=== PATIENT | female | born 1975 | race Caucasian/White ===

== ENCOUNTER → 2022-10-31 | Outpatient (CLI) | payer BC ==
--- NOTE | 2022-11-04 09:13 | MM ---
Reason for Exam: Screening (asymptomatic). Baseline mammogram. Patient History: Menarche at age 16. First Full-Term at age 28. Last menstrual period: 10/26/2022 Risk Values: Magda 5 year model risk: 0.8%. NCI Lifetime model risk: 9.8%. Prior Study Comparison: Patient's first Mammogram. Tissue Density: The breast tissue is heterogeneously dense. This may lower the sensitivity of mammography. Findings: Analyzed By CAD. Left upper outer quadrant interval lingular lymph node. No suspicious masses or calcifications. Right breast 11 mm asymmetry at 2.6 cm the nipple posterior nipple line. Overall Assessment: Incomplete: need additional imaging evaluation, BI-RAD 0 Management: Diagnostic Mammogram of the right breast. [facility] will attempt to contact patient to return for supplemental views and ultrasound if indicated. Patient should continue monthly self-breast exams. A clinical breast exam by your physician is recommended on an annual basis. This exam should not preclude additional follow-up of suspicious palpable abnormalities. Note on Magda scores and lifetime risk: 1. A Magda score greater than 3% is considered moderate risk. If this is the case, consider specialist referral to assess eligibility for a risk reducing agent. 2. If overall lifetime risk for the development of breast cancer is 20% or higher, the patient may qualify for future screening with alternating mammogram and breast MRI. Electronically signed and approved by: Carlito Rubio DO
== END | disposition home or self-care (01) ==
LOC: RADMAMWWP 15:43
PROVIDERS: ATTEND Family Medicine
DX: Z12.31 Encounter for screening mammogram for malignant neoplasm of breast (principal)
CPT/HCPCS: 77063; 77067

== ENCOUNTER → 2022-11-06 | Outpatient (CLI) | payer BC ==
--- NOTE | 2022-11-06 08:45 | USB ---
Reason for Exam: Additional evaluation requested from abnormal screening. Patient History: Menarche at age 16. First Full-Term at age 28. Patient has history of breast feeding. Risk Values: Magda 5 year model risk: 0.8%. NCI Lifetime model risk: 9.8%. Prior Study Comparison: 10/31/2022 Bilateral MG 3D screening mammo w/cad, [facility]. Findings: There is a solid 1.4 x 1.1 x 0.8 cm solid smooth bordered lesion at the 12:00 position 4 cm nipple. This appears to correspond to the mammographic finding. Core biopsy is recommended for histologic diagnosis. Overall Assessment: Suspicious, BI-RAD 4 Management: Ultrasound Core Biopsy of the right breast. A clinical breast exam by your physician is recommended on an annual basis and results should be correlated with mammographic findings. This exam should not preclude additional follow-up of suspicious palpable abnormalities. Results were given to the patient verbally at the time of exam. Electronically signed and approved by: Noe Turner D.O. Radiologis
--- NOTE | 2022-11-06 09:19 | MM ---
Reason for Exam: Clinical finding. Last screening mammogram was performed less than 1 month ago. Patient History: Menarche at age 16. First Full-Term at age 28. Patient has history of breast feeding. Last menstrual period: 10/25/2022 Risk Values: Magda 5 year model risk: 0.8%. NCI Lifetime model risk: 9.8%. Prior Study Comparison: 10/31/2022 Bilateral MG 3D screening mammo w/cad, [facility]. Tissue Density: Right: The breast tissue is heterogeneously dense. This may lower the sensitivity of mammography. Findings: Analyzed By CAD. There is a persistent rounded density with partially obscured margins in the right breast 2 cm from the nipple. This may be at the 12:00 position on the lateral projection slightly further from the nipple. This area is persistent from the screening images. Additional evaluation with ultrasound is recommended. Overall Assessment: Incomplete: need additional imaging evaluation, BI-RAD 0 Management: Diagnostic Breast Ultrasound of the right breast. A negative mammogram report should not preclude additional follow up of suspicious palpable abnormalities. Patient should continue monthly self breast exam. A clinical breast exam by your physician is recommended on an annual basis and results should be correlated with mammographic findings. Electronically signed and approved by: Noe Turner D.O. Radiologis
== END | disposition home or self-care (01) ==
LOC: RADMAMWWP 07:39
PROVIDERS: ATTEND Family Medicine
DX: R92.8 Other abnormal and inconclusive findings on diagnostic imaging of breast (principal)
CPT/HCPCS: 77061; 77065

== ENCOUNTER → 2022-11-15 | Day surgery (SDC) | payer BC ==
--- NOTE | 2022-11-25 12:07 | MM ---
Reason for Exam: Post Procedure Mammogram. Last screening mammogram was performed less than 1 month ago. Patient History: Menarche at age 16. First Full-Term at age 28. Patient has history of breast feeding. Risk Values: Magda 5 year model risk: 0.8%. NCI Lifetime model risk: 9.8%. Prior Study Comparison: 10/31/2022 Bilateral MG 3D screening mammo w/cad, [facility]. 11/06/2022 Right MG 3D work up w/cad RT, [facility]. Tissue Density: Right: The breast tissue is heterogeneously dense. This may lower the sensitivity of mammography. Pathology Description: Location: 12 o'clock. Marker Left Behind. Needle Type: [employer] Cores: 3 Gauge: 12 The procedure of ultrasound guided core biopsy was explained to the patient. Benefits, alternatives, and risks were discussed. An informed consent was then obtained. The patient was placed in supine positioning for imaging and for the procedure. The overlying skin was prepped and draped in usual sterile fashion. Lidocaine buffered with bicarbonate was used as anesthetic into the skin and subcutaneous tissue up to area of concern in the right 12:00 breast. A shawn was made with surgical scalpel. Under ultrasound guidance, a 12-gauge vacuum assisted biopsy gun device was used to obtain 3 core samples. Following this, a biopsy clip was left in lesion. The patient tolerated the procedure well without any immediate complication. The patient was kept in the radiology department for short stay after the procedure and then discharged home in stable condition. Postprocedure mammogram: The patient was transferred to mammography for physician ordered post procedure mammogram for clip placement verification. Impression: Successful, uncomplicated ultrasound guided core biopsy of area of concern in the right 12:00 breast, full pathology results to follow. Pathology Results: Result: High risk. RIGHT BREAST, 12:00 POSITION, ULTRASOUND GUIDED CORE BIOPSY: Fibroadenoma with focal intraductal proliferation (see note). Final assessment is pending external institution consultation with an addendum report to follow. Notes Per EMR, it is noted there is a 1.4 cm in greatest dimension smooth bordered lesion at the 12:00 position of the right breast, 4 cm from the nipple. In order to exclude invasion, smooth muscle myosin heavy chain immunohistochemical staining is performed with appropriate controls from the tissue block. Myosin heavy chain staining is positive within myoepithelial cells surrounding ductal structures. Final assessment is pending external institution second opinion consultation in order to further assess for potential atypia. These consultation results will be reported in an addendum. Overall Assessment: High risk Assessment: MG diagnostic mammo RT wo CAD - Right: Suspicious, BI-RAD 4. Management: Surgical Consultation of the right breast. Electronically signed and approved by: Johnny Reese M.D. Radiologis
== END ==
LOC: RADUSWWP 09:50
PROVIDERS: ATTEND Surgery
DX: D24.1 Benign neoplasm of right breast (principal)
CPT/HCPCS: 88305; 88342; 77065; 19083; A4648

== ENCOUNTER 2022-12-16 06:29 | Day surgery (SDC) | payer BC ==
[2022-12-10 08:59] VITALS: BMI 34.0
[2022-12-16] MEDS ORDERED: DEXAMETHASONE SOD PHOSPHATE 4 MG/ML 1 ML VIAL IV ONE (07:29)
[2022-12-16] MEDS ORDERED: ONDANSETRON 4 MG/2 ML VIAL IVP ONE ×2 (07:29→10:36)
[2022-12-16] MEDS ORDERED: fentaNYL (PF) 50 MCG/ML 2 ML AMP IVP PRN (07:29)
[2022-12-16] MEDS ORDERED: LACTATED RINGERS 1,000 ML IV SCH (07:29)
--- NOTE | 2022-12-16 07:41 | P.GSHP ---
History of Present Illness H&P Date: 12/16/22 Chief Complaint: Abnormal right mammogram 47-year-old female seen in the office 11/21. Patient had recent mammogram and ultrasound performed. Mammogram showed a density near the nipple. Ultrasound showed a 1.4 cm lesion there that was solid. Ultrasound core biopsy shows fi broadenoma with atypical ductal hyperplasia. Patient here today for wire localization biopsy. Family history of breast cancer and a great-grandmother. Patient has no symptoms. Past Medical History Past Medical History: No Reported History Additional Past Medical History / Comment(s): small gallbladder attack. ON 3RD DAY OF ANTIBIOTICS FOR SINUS INFECTION History of Any Multi-Drug Resistant Organisms: None Reported Past Surgical History: Breast Surgery, Cholecystectomy Additional Past Surgical History / Comment(s): cyst removal on LT breast. bx RT breast-atypical cells Past Anesthesia/Blood Transfusion Reactions: No Reported Reaction Additional Past Anesthesia/Blood Transfusion Reaction / Comment(s): low blood pressure in recovery Past Psychological History: Anxiety Additional Psychological History / Comment(s): mild, no meds Smoking Status: Former smoker Past Alcohol Use History: None Reported Additional Past Alcohol Use History / Comment(s): QUIT SMOKING 2013 Past Drug Use History: None Reported - Past Family History Father Family Medical History: Cancer, Thyroid Disorder Additional Family Medical History / Comment(s): heart disease Mother Family Medical History: Cancer Medications and Allergies Home Medications Medication Instructions Recorded Confirmed Type Phentermine HCl 37.5 mg PO DAILY 12/10/22 12/10/22 History Allergies Allergy/AdvReac Type Severity Reaction Status Date / Time latex Allergy Itching Verified 12/10/22 08:50 morphine Allergy Unknown Uncoded 12/10/22 08:50 Surgical - Exam Vital Signs Temp Pulse Resp BP Pulse Ox 98.8 F 72 18 127/83 99 12/16/22 07:17 12/16/22 07:17 12/16/22 07:17 12/16/22 07:17 12/16/22 07:17 Physical exam: General: Well-developed, well-nourished HEENT: Normocephalic, sclerae nonicteric Right breast: Recent biopsy site noted, no masses or adenopathy Left breast: No masses or adenopathy Abdomen: Nontender, nondistended Extremities: No edema Neuro: Alert and oriented Assessment and Plan (1) Abnormal mammogram Narrative/Plan: 47-year-old female with abnormal right mammogram. We'll proceed with right breast wire localization biopsy at this time. Risks of bleeding, infection, scarring, numbness, possible need for further surgeries, dimpling, nipple inversion. Patient understands and wishes to proceed. Current Visit: Yes Status: Acute Code(s): R92.8 - OTH ABN AND INCONCLUSIVE FINDINGS ON DX IMAGING OF BREAST SNOMED Code(s): 573833949
[2022-12-16] MEDS ORDERED: HEPARIN SODIUM,PORCINE/PF 5,000 UNIT/0.5 ML SYRINGE SQ ONE (07:42)
[2022-12-16] MEDS ORDERED: ALPRAZolam 0.25 MG TAB ONE (07:43)
[2022-12-16] MEDS ORDERED: ALPRAZolam 0.25 MG TAB PO ONE (07:44)
[2022-12-16 08:14] VITALS: RESP 16
[2022-12-16] MEDS ORDERED: LIDOCAINE 1% INJ 10MG/ML (20 ML MDV) SQ ONE (08:21)
[2022-12-16 08:36] VITALS: TEMP 98.1
[2022-12-16] MEDS ORDERED: MIDAZOLAM 2 MG/2 ML VIAL ONE (09:16)
[2022-12-16] MEDS ORDERED: LIDOCAINE 2% INJ 20 MG/ML (2 ML VIAL) ONE (09:16)
[2022-12-16] MEDS ORDERED: PROPOFOL 10 MG/ML 20 ML VIAL IV ONE (09:16)
[2022-12-16] MEDS ORDERED: fentaNYL (PF) 50 MCG/ML 2 ML AMP ONE (09:16)
[2022-12-16] MEDS ORDERED: BUPIVACAINE (PF) 0.25% 30 ML VIAL SQ ONE ×2 (09:41→10:00)
[2022-12-16] MEDS ORDERED: ACETAMINOPHEN TAB 325 MG TAB PO PRN (10:24)
[2022-12-16] MEDS ORDERED: NALOXONE 0.4 MG/ML 1 ML VIAL IV PRN (10:24)
--- NOTE | 2022-12-16 10:26 | P.OP ---
Date of Procedure: 12/16/22 Procedure(s) Performed: PREOPERATIVE DIAGNOSIS: Abnormal right mammogram POSTOPERATIVE DIAGNOSIS: Same PROCEDURE: Right Breast wire localization biopsy SURGEON: Giselle EBL: Minimal ANESTHESIA: General plus local COMPLICATIONS: None OPERATIVE PROCEDURE: Patient was placed on the operating room table in the cormier pine position. The patient's breast was prepped and draped in usual sterile fashion. A curvilinear incision was made adjacent to the areola between 9 and 1:00. Dissection superiorly until the wire was identified and brought out through this incision took place using electrocautery. I followed the wire down into the breast tissue. The breast tissue around the tip of the wire was fully excised using electrocautery. The specimen was sent for specimen radiogram. The clip was present within the specimen. The subcutaneous tissues were inspected. No bleeding was seen. The subcutaneous tissues were closed using 3- 0 Vicryl sutures. The skin was closed using interrupted 4-0 Monocryl stitch. Skin glue and sterile dressings were applied. DISPOSITION: Stable to recovery room
[2022-12-16] MEDS ORDERED: droPERidol 5 MG/2 ML VIAL IVP ONE (10:42)
[2022-12-16] MEDS ORDERED: HYDROmorphone 0.5 MG/0.5 ML SYRINGE IVP ONE (10:43)
[2022-12-16] MEDS ORDERED: KETOROLAC 15 MG/ML 1 ML VIAL IVP SCH (12:00)
[2022-12-16 12:05] VITALS: BP 129/88; PULSE 53
--- NOTE | 2022-12-16 14:47 | MM ---
Risk Values: Magda 5 year model risk: 1.3%. NCI Lifetime model risk: 11.7%. Electronically signed and approved by: Carlito Rubio DO
--- NOTE | 2022-12-19 13:14 | MM ---
Reason for Exam: Post Procedure Mammogram. Last screening mammogram was performed 1 month(s) ago. Patient History: Menarche at age 16. First Full-Term at age 28. Premenopausal. Patient has history of breast feeding. Risk Values: Magda 5 year model risk: 0.8%. NCI Lifetime model risk: 9.7%. Prior Study Comparison: 10/31/2022 Bilateral MG 3D screening mammo w/cad, [facility]. 11/06/2022 Right MG 3D work up w/cad RT, [facility]. 11/15/2022 Right MG diagnostic mammo RT wo CAD, [facility]. Tissue Density: Right: The breast tissue is heterogeneously dense. This may lower the sensitivity of mammography. Pathology Description: The procedure was explained to the patient and all questions were answered. The potential risks including but not limited to bleeding, infection, and potential need for additional work up were discussed. Informed, written consent was obtained. The correct site was marked. A time out was performed. A mammogram guided wire localization was performed for the fibroadenoma located in the right breast at 12:00 4 cm from the nipple. This was described on the previous report. The skin was prepped in the usual manner. Local anesthetic was administered to the access site using approximately 8 mL of lidocaine. The abnormality was approached from the lateral aspect. A Kopans needle was placed adjacent to the abnormality under mammographic guidance and confirmatory mammography images were obtained to document correct needle placement. Once the needle was documented to be in the correct location, the wire was deployed. The needle was removed. Post-procedure mammographic images were obtained to document positioning. The wire was secured to the patient's skin with a dressing. The patient tolerated the procedure well and left the department in good. Post procedure mammogram confirms location of needle localization. Specimen was obtained and contained both the lesion, clip and the wire. IMPRESSION: Successful mammogram guided wire localization of right breast lesion at 12:00 4 submitted images from the nipple. Pathology Results: Result: Benign, Fibroadenomatoid hyperplasia. Result: High risk, Atypical ductal hyperplasia. RIGHT BREAST, NEEDLE LOCALIZATION EXICISION: Fibroadenoma/fibroadenomatoid hyperplasia and background fibrocystic changes. ADH High Risk noted on 11/15/22. Overall Assessment: High risk Assessment: MG diagnostic mammo RT wo CAD - Right: Suspicious, BI-RAD 4. Management: Diagnostic Mammogram of the right breast in 6 months. Electronically signed and approved by: Carlito Rubio DO
== END 2022-12-16 12:07 | disposition home or self-care (01) ==
LOC: OR 06:29
PROVIDERS: ATTEND Surgery
DX: D24.1 Benign neoplasm of right breast (principal); F41.9 Anxiety disorder, unspecified; Z80.3 Family history of malignant neoplasm of breast; Z90.49 Acquired absence of other specified parts of digestive tract; Z87.891 Personal history of nicotine dependence; Z83.49 Family history of other endocrine, nutritional and metabolic diseases; Z82.49 Family history of ischemic heart disease and other diseases of the circulatory system; Z80.9 Family history of malignant neoplasm, unspecified; Z91.040 Latex allergy status; Z88.5 Allergy status to narcotic agent; Z88.9 Allergy status to unspecified drugs, medicaments and biological substances
CPT/HCPCS: 81025; 88307; 77065; 76098; 19125; C1819; J2250; J1100; J0690; J2405; J2001 ×2; J3010; J1885; J2704; J1170; J1790; J1644; J0665

== ENCOUNTER 2022-12-18 10:51 | Emergency (ER) | payer BC, OTHER ==
[2022-12-18 11:07] VITALS: RESP 18
[2022-12-18] MEDS ORDERED: SODIUM CHLORIDE 0.9% 500 ML 500 ML IV ONE (11:33)
[2022-12-18 11:43] LABS: Basophils % (A) 0 %; Eosinophils # (A) 0.1 k/uL (0-0.7); Eosinophils % (A) 2 %; HCT 38.4 % (34.0-46.0); Lymphocytes # (A) 1.2 k/uL (1.0-4.8); Lymphocytes % (A) 19 %; MCH 31.9 pg (25.0-35.0); MCV 94.1 fL (80.0-100.0); Mean Platelet Volume 8.6; Monocytes # (A) 0.3 k/uL (0-1.0); Monocytes % (A) 5 %; Neutrophils # (A) 4.5 k/uL (1.3-7.7); Neutrophils % (A) 73 %; Platelet Count 262 k/uL (150-450); RBC 4.08 m/uL (3.80-5.40); RDW 12.5 % (11.5-15.5); WBC 6.2 k/uL (3.8-10.6)
[2022-12-18 11:59] LABS: ALT 70 U/L (4-34); AST 35 U/L (14-36); African American GFR (CKD) >90 (>60 ml/min/1.73 sqM); Alkaline Phosphatase 48 U/L (38-126); Anion Gap 7 mmol/L; Blood Urea Nitrogen 12 mg/dL (7-17); Calcium 9.1 mg/dL (8.4-10.2); Carbon Dioxide 27 mmol/L (22-30); Chloride 103 mmol/L (98-107); Glucose 92 mg/dL (74-99); Magnesium 1.8 mg/dL (1.6-2.3); Non-African American GFR(CKD) 83 (>60 ml/min/1.73 sqM); Potassium 3.9 mmol/L (3.5-5.1); Sodium 137 mmol/L (137-145); Total Bilirubin 0.4 mg/dL (0.2-1.3); Total Protein 6.8 g/dL (6.3-8.2)
--- NOTE | 2022-12-18 12:05 | ED ---
General Adult HPI - General Chief complaint: Chest Pain Stated complaint: POST SURGERY CHEST PAIN, BURNING IN CHEST Time Seen by Provider: 12/18/22 11:14 Source: patient, RN notes reviewed, old records reviewed Mode of arrival: ambulatory Limitations: no limitations - History of Present Illness Initial comments: 47-year-old female presenting for evaluation of right breast pain and central chest pain. Symptoms began prior to arrival. Patient is 2 days postop lumpectomy of the right breast. She denies fever. Denies vomiting. Denies abdominal pain. Denies prior cardiac history. Symptoms have improved since the time of onset. - Related Data Home Medications Medication Instructions Recorded Confirmed Phentermine HCl 37.5 mg PO DAILY 12/10/22 12/16/22 Allergies Allergy/AdvReac Type Severity Reaction Status Date / Time latex Allergy Itching Verified 12/18/22 11:07 morphine Allergy Unknown Uncoded 12/18/22 11:07 Review of Systems ROS Statement: Those systems with pertinent positive or pertinent negative responses have been documented in the HPI. ROS Other: All systems not noted in ROS Statement are negative. Past Medical History Past Medical History: No Reported History Additional Past Medical History / Comment(s): small gallbladder attack. ON 3RD DAY OF ANTIBIOTICS FOR SINUS INFECTION History of Any Multi-Drug Resistant Organisms: None Reported Past Surgical History: Breast Surgery, Cholecystectomy Additional Past Surgical History / Comment(s): cyst removal on LT breast. bx RT breast-atypical cells. mass removed rt breast Past Anesthesia/Blood Transfusion Reactions: No Reported Reaction Additional Past Anesthesia/Blood Transfusion Reaction / Comment(s): low blood pressure in recovery Past Psychological History: Anxiety Smoking Status: Former smoker Past Alcohol Use History: None Reported Past Drug Use History: None Reported - Past Family History Father Family Medical History: Cancer, Thyroid Disorder Additional Family Medical History / Comment(s): heart disease Mother Family Medical History: Cancer General Exam Limitations: no limitations General appearance: alert, in no apparent distress Head exam: Present: atraumatic, normocephalic Eye exam: Present: normal appearance, PERRL ENT exam: Present: normal exam Neck exam: Present: normal inspection. Absent: tenderness, meningismus Respiratory exam: Present: normal lung sounds bilaterally, other (Right breast, incision just above the nipple, no erythema, no drainage, no tenderness to palpation). Absent: respiratory distress Cardiovascular Exam: Present: regular rate, normal rhythm GI/Abdominal exam: Present: soft. Absent: distended, tenderness, guarding Course Vital Signs 12/18/22 11:04 Temperature 97.7 F Pulse Rate 69 Respiratory 18 Rate Blood Pressure 164/99 O2 Sat by Pulse 99 Oximetry Medical Decision Making - Medical Decision Making Was pt. sent in by a medical professional or institution (LICHA Gray, FIELD MARKETING DIRECTOR, urgent care, hospital, or correction...) When possible be specific @ -No Did you speak to anyone other than the patient for history (EMS, parent, family, police, friend...)? What history was obtained from this source @ -No Did you review nursing and triage notes (agree or disagree)? Why? @ -I reviewed and agree with nursing and triage notes Were old charts reviewed (outside hosp., previous admission, EMS record, old EKG, old radiological studies, urgent care reports/EKG's, correction records)? Report findings @ -No old charts were reviewed Differential Diagnosis (chest pain, altered mental status, abdominal pain women, abdominal pain men, vaginal bleeding, weakness, fever, dyspnea, syncope, headache, dizziness, GI bleed, back pain, seizure, CVA, palpatations, mental health, musculoskeletal)? @ -Postoperative infection, seroma, normal postoperative healing EKG interpreted by me (3pts min.). @Sinus rhythm rate of 62, MN interval 156, QRS duration 83, QTC [address] segment elevation. X-rays interpreted by me (1pt min.). @ -None done CT interpreted by me (1pt min.). @ -None done U/S interpreted by me (1pt. min.). @ -None done What testing was considered but not performed or refused? (CT, X-rays, U/S, labs)? Why? @ -None What meds were considered but not given or refused? Why? @ -None Did you discuss the management of the patient with other professionals (professionals i.e. LICHA Gray, FIELD MARKETING DIRECTOR, lab, RT, psych nurse, adoption social worker, digital campaign manager, teacher, agricultural technical officer, rn case management)? Give summary @Discussed with Dr. Desai, patient stable for outpatient follow-up Was smoking cessation discussed for >3mins.? @ -No Was critical care preformed (if so, how long)? @ -No Were there social determinants of health that impacted care today? How? (Homelessness, low income, unemployed, alcoholism, drug addiction, transportation, low edu. Level, literacy, decrease access to med. care, halfway, rehab)? @ -No Was there de-escalation of care discussed even if they declined (Discuss DNR or withdrawal of care, Hospice)? DNR status @ -No What co-morbidities impacted this encounter? (DM, HTN, Smoking, COPD, CAD, Cancer, CVA, ARF, Chemo, Hep., AIDS, mental health diagnosis, sleep apnea, morbid obesity)? @ -[2 days postop lobectomy Was patient admitted / discharged? Hospital course, mention meds given and route, prescriptions, significant lab abnormalities, going to OR and other pertinent info. @37-year-old female with right breast pain. Examination reveals normal postoperative healing, no erythema, no induration no fluctuance. I did perform laboratory testing because the patient states this didn't radiate to her central chest. Normal EKG, normal chest x-ray, normal laboratory tests including negative troponin. Patient stable for discharge. Undiagnosed new problem with uncertain prognosis? @ -No Drug Therapy requiring intensive monitoring for toxicity (Heparin, Nitro, Insulin, Cardizem)? @ -No Were any procedures done? @ -No Diagnosis/symptom? @ -S/p lumpectomy, normal postoperative healing Acute, or Chronic, or Acute on Chronic? @ -[acute Uncomplicated (without systemic symptoms) or Complicated (systemic symptoms)? @ -[uncomplicated Side effects of treatment? @ -No Exacerbation, Progression, or Severe Exacerbation? @ -No Poses a threat to life or bodily function? How? (Chest pain, [place], [place], pneumonia, PE, COPD, DKA, ARF, appy, cholecystitis, CVA, Diverticulitis, Homicidal, Suicidal, threat to staff... and all critical care pts) @ -No - Lab Data Result diagrams: 12/18/22 11:30 12/18/22 11:30 Lab Results 12/18/22 12/18/22 12/18/22 Range/Units 11: 11: 11:30 WBC 6.2 (3.8-10.6) k/uL RBC 4.08 (3.80-5.40) m/uL Hgb 13.0 (11.4-16.0) gm/dL Hct 38.4 (34.0-46.0) % MCV 94.1 (80.0-100.0) fL MCH 31.9 (25.0-35.0) pg MCHC 34.0 (31.0-37.0) g/dL RDW 12.5 (11.5-15.5) % Plt Count 262 (150-450) k/uL MPV 8.6 Neutrophils % 73 % Lymphocytes % 19 % Monocytes % 5 % Eosinophils % 2 % Basophils % 0 % Neutrophils # 4.5 (1.3-7.7) k/uL Lymphocytes # 1.2 (1.0-4.8) k/uL Monocytes # 0.3 (0-1.0) k/uL Eosinophils # 0.1 (0-0.7) k/uL Basophils # 0.0 (0-0.2) k/uL Sodium 137 (137-145) mmol/L Potassium 3.9 (3.5-5.1) mmol/L Chloride 103 (98-107) mmol/L Carbon Dioxide 27 (22-30) mmol/L Anion Gap 7 mmol/L BUN 12 (7-17) mg/dL Creatinine 0.86 (0.52-1.04) mg/dL Est GFR (CKD-EPI)AfAm >90 (>60 ml/min/1.73 sqM) Est GFR (CKD-EPI)NonAf 83 (>60 ml/min/1.73 sqM) Glucose 92 (74-99) mg/dL Calcium 9.1 (8.4-10.2) mg/dL Magnesium 1.8 (1.6-2.3) mg/dL Total Bilirubin 0.4 (0.2-1.3) mg/dL AST 35 (14-36) U/L ALT 70 H (4-34) U/L Alkaline Phosphatase 48 (38-126) U/L Troponin I <0.012 (0.000-0.034) ng/mL Total Protein 6.8 (6.3-8.2) g/dL Albumin 4.0 (3.5-5.0) g/dL Disposition Clinical Impression: Status post right breast lumpectomy Disposition: HOME SELF-CARE Condition: Good Instructions (If sedation given, give patient instructions): Breast Lumpectomy (DC) Is patient prescribed a controlled substance at d/c from ED?: No Referrals: Jasper Daniel Jr, [Primary Care Provider] - 1-2 days Teto Desai MD [Medical Doctor] - 1-2 days Time of Disposition: 12:37
--- NOTE | 2022-12-18 12:06 | XR ---
EXAMINATION TYPE: XR chest 2V DATE OF EXAM: 12/18/2022 COMPARISON: 10/17/2020 TECHNIQUE: PA and lateral views submitted. HISTORY: Chest pain FINDINGS: The lungs are clear and there is no pneumothorax, pleural effusion, or focal pneumonia. Heart size normal and no overt failure. Osseous structures intact. A bone island overlying the right humeral hea d is intact. Surgical clips in the abdomen. IMPRESSION: 1. No acute process.
[2022-12-18 12:18] LABS: INR 0.9 (<1.2); Partial Thromboplastin Time 22.6 sec (22.0-30.0); Prothrombin Time 9.7 sec (9.0-12.0)
[2022-12-18 12:48] VITALS: BP 147/73; PULSE 57; TEMP 98.6
== END 2022-12-18 12:50 | disposition home or self-care (01) ==
LOC: EC 10:51
DX: N64.4 Mastodynia (principal); Z98.890 Other specified postprocedural states; Z88.5 Allergy status to narcotic agent; Z91.040 Latex allergy status; Z90.49 Acquired absence of other specified parts of digestive tract; Z87.891 Personal history of nicotine dependence
CPT/HCPCS: 36415; 71046; 80053; 83735; 84484; 85025; 85610; 85730; 93005; 99285

== ENCOUNTER → 2023-10-24 | Outpatient (CLI) | payer BC ==
--- NOTE | 2023-10-24 11:21 | MM ---
Reason for Exam: Follow-up at short interval from prior study. Last screening mammogram was performed 12 month(s) ago. Patient History: Menarche at age 16. First Full-Term at age 28. Premenopausal. Patient has history of breast feeding. Previous Hyperplasia w/o Atypia at age 47. Previous Atypical Ductal Hyperplasia at age 47. 12/16/2022, Lumpectomy on the Right side. 12/16/2022, High risk US breast localization RT on the right side. 11/15/2022, High risk US biopsy breast VAD RT on the right side. Last menstrual period: 10/13/2023 Risk Values: Magda 5 year model risk: 4.3%. NCI Lifetime model risk: 27.1%. Prior Study Comparison: 10/31/2022 Bilateral MG 3D screening mammo w/cad, [facility]. 11/06/2022 Right US breast workup limited RT, [facility]. 11/06/2022 Right MG 3D work up w/cad RT, [facility]. 11/15/2022 Right MG diagnostic mammo RT wo CAD, [facility]. 12/16/2022 Right MG diagnostic mammo RT wo CAD, [facility]. Tissue Density: The breasts are heterogeneously dense, which may obscure small masses. Findings: Analyzed By CAD. Postexcisional changes on the right. Low axillary tail lymph node redemonstrated on the left. Otherwise, no significant change. Overall Assessment: Incomplete: need additional imaging evaluation, BI-RAD 0 Management: Diagnostic Breast Ultrasound of the left breast. Electronically signed and approved by: Christine Gil M.D. Radiologist
--- NOTE | 2023-10-24 11:54 | USB ---
Reason for Exam: Clinical finding. Patient History: Menarche at age 16. First Full-Term at age 28. Premenopausal. Patient has history of breast feeding. Previous Hyperplasia w/o Atypia at age 47. Previous Atypical Ductal Hyperplasia at age 47. 12/16/2022, Lumpectomy on the Right side. 12/16/2022, High risk US breast localization RT on the right side. 11/15/2022, High risk US biopsy breast VAD RT on the right side. Risk Values: Brooke 5 year model risk: 4.3%. NCI Lifetime model risk: 27.1%. Technique: Method: Whole Breast Handheld. Prior Study Comparison: 11/06/2022 Right MG 3D work up w/cad RT, [facility]. 11/15/2022 Right MG diagnostic mammo RT wo CAD, [facility]. 12/16/2022 Right MG diagnostic mammo RT wo CAD, [facility]. Findings: The whole breast of the left breast, the axilla of the left breast and the retroareolar of the left breast were scanned. A complete US of all four quadrants of the breast common axilla, and retro-areolar region were reviewed. No solid or cystic masses are identified. A prominent low axillary tail lymph node measuring 1.2 x 1.2 x 1.0 cm corresponds to the mammographic finding. There is thin uniform cortex and large fatty hilum. Overall Assessment: Benign, BI-RAD 2 Management: Diagnostic Mammogram of both breasts in 1 year. Further clinical management of patient's left breast swelling/pain. A clinical breast exam by your physician is recommended on an annual basis and results should be correlated with mammographic findings. This exam should not preclude additional follow-up of suspicious palpable abnormalities. Results were given to the patient verbally at the time of exam. NOTE ON BROOKE SCORES AND LIFETIME RISK: 1. A Brooke score greater than 3% is considered moderate risk. If this is the case, consider specialist referral to assess eligibility for a risk reducing agent. 2. IF OVERALL LIFETIME RISK FOR THE DEVELOPMENT OF BREAST CANCER IS 20% OR HIGHER, THE PATIENT MAY QUALIFY FOR FUTURE SCREENING WITH ALTERNATING MAMMOGRAM AND BREAST MRI. Electronically signed and approved by: Christine Gil M.D. Radiologist
== END | disposition home or self-care (01) ==
LOC: RADMAMWWP 10:34
PROVIDERS: ATTEND Surgery
DX: R92.8 Other abnormal and inconclusive findings on diagnostic imaging of breast (principal); R92.333 Mammographic heterogeneous density, bilateral breasts
CPT/HCPCS: 77062; 77066

== ENCOUNTER → 2024-11-02 | Outpatient (CLI) | payer BC ==
--- NOTE | 2024-11-02 09:09 | MM ---
Reason for Exam: Hx of benign breast biopsy. Last screening mammogram was performed 12 month(s) ago. Patient History: Menarche at age 16. First Full-Term at age 28. Premenopausal. Patient has history of breast feeding. Previous Hyperplasia w/o Atypia at age 47. Previous Atypical Ductal Hyperplasia at age 47. Tamoxifen for 2 months from age 47 until age 47. 12/16/2022, Lumpectomy on the Right side. 12/16/2022, High risk US breast localization RT on the right side. 11/15/2022, High risk US biopsy breast VAD RT on the right side. Risk Values: Magda 5 year model risk: 4.0%. NCI Lifetime model risk: 26.5%. Tissue Density: The breasts are heterogeneously dense, which may obscure small masses. Findings: Analyzed By CAD. Significant increase in segmental calcifications which are indeterminate within the upper outer right breast. Stereotactic core biopsy is recommended. Overall Assessment: Suspicious, BI-RAD 4 Management: Stereotactic Core Biopsy of the right breast. . Results were given to the patient verbally at the time of exam. Patient should continue monthly self-breast exams. A clinical breast exam by your physician is recommended on an annual basis. This exam should not preclude additional follow-up of suspicious palpable abnormalities. Note on Magda scores and lifetime risk: 1. A Magda score greater than 3% is considered moderate risk. If this is the case, consider specialist referral to assess eligibility for a risk reducing agent. 2. If overall lifetime risk for the development of breast cancer is 20% or higher, the patient may qualify for future screening with alternating mammogram and breast MRI. [facility], , 11/02/2024 9:05 AM. Electronically signed and approved by: Johnny Reese M.D. Radiologis
== END | disposition home or self-care (01) ==
LOC: RADMAMWWP 08:26
PROVIDERS: ATTEND Surgery
DX: R92.8 Other abnormal and inconclusive findings on diagnostic imaging of breast (principal); R92.333 Mammographic heterogeneous density, bilateral breasts
CPT/HCPCS: 77062; 77066

== ENCOUNTER → 2024-11-15 | Day surgery (SDC) | payer BC ==
[~2024-11-15] MED LIST: ALPRAZolam 0.25 MG TAB PO PRN
[2024-11-15] MEDS: ALPRAZolam 0.5 MG TAB PO PRN (10:14)
[2024-11-15 10:22] VITALS: RESP 16
[2024-11-15 11:31] VITALS: BP 125/79; PULSE 85; TEMP 98.1
--- NOTE | 2024-11-23 15:32 | MM ---
Risk Values: Magda 5 year model risk: 4.0%. NCI Lifetime model risk: 26.5%. Prior Study Comparison: 12/16/2022 Right MG diagnostic mammo RT wo CAD, [facility]. 10/24/2023 Bilateral MG 3D diag mammo w/cad [facility], [facility]. 11/02/2024 Bilateral MG 3D diag mammo w/cad [facility], [facility]. Pathology Description: Marker Left Behind. Specimen Radiograph. 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 The procedure of stereotactic guided core biopsy was explained to the patient. Benefits, alternatives, and risks were discussed. An informed consent was then obtained. The shortness pathway for biopsy was chosen. Shortness pathway was a lateral approach. There are extensive grouped and regional calcifications are targeted. A vacuum assisted biopsy gun was used to obtain multiple core samples. The patient tolerated the procedure well without any immediate complication. The patient was kept in the radiology department for short stay after the procedure and then discharged home in stable condition. Targeted calcifications are identified in specimen mammogram. Patient was taken to a dedicated mammography suite for post procedure clip placement verification. Post biopsy mammogram shows the clip to appear in satisfactory position relative to the targeted area of concern on the preprocedure images. There was a small hematoma formation following the biopsy which was controlled with 5 minutes of direct pressure. Impression: SUCCESSFUL, UNCOMPLICATED STEREOTACTIC GUIDED CORE BIOPSY OF EXTENSIVE CALCIFICATIONS THROUGHOUT THE UPPER OUTER QUADRANT OF THE RIGHT BREAST. We note high risk scores in this patient. Pathology Results: Result: High risk, Atypical ductal hyperplasia. Pathology and radiology were reviewed. Findings are concordant. RIGHT BREAST, STEREOTACTIC NEEDLE CORE BIOPSY: Atypical ductal hyperplasia (ADH) involving lobules and background fibrocystic changes including microcalcifications. See note. Notes Sections examined show breast tissue with fibrocystic changes. There are scattered lobular units seen which are expanded by monotonous, atypical cells. E-Cadherin, CK 5/6 and Estrogen receptor immunostains performed on blocks A1 and A2 and evaluated with appropriate positive controls show the atypical cells to be immunohistochemically positive for E-Cadherin and Estrogen receptor, and immunohistochemically negative for CK 5/6. CK 5/6 highlights a myoepithelial layer surrounding ductal and lobular units. The results support the diagnosis of atypical ductal hyperplasia involving lobular units. Wet Press Tender material from this case was also reviewed by Dr. Marshal Marino, who concurs with the above diagnosis. Overall Assessment: High risk Management: Surgical Consultation of the right breast. Electronically signed and approved by: Christine Gil M.D. Radiologist
== END ==
LOC: RADMAMWWP 09:36
PROVIDERS: ATTEND Surgery
DX: N60.91 Unspecified benign mammary dysplasia of right breast (principal); R92.8 Other abnormal and inconclusive findings on diagnostic imaging of breast
CPT/HCPCS: 88305; 88342; 88341; 19081; J2003